=== PATIENT | male | born 1960 | race Caucasian/White ===

== ENCOUNTER 2024-07-23 06:59 | Observation (INO) | payer BC, SELFPAY ==
[2024-07-23] VITALS (29 sets, daily range): BP systolic 91–103; BP diastolic 54–65; PULSE 84–107; TEMP 36.6–36.8; O2SAT 91–100; BMI 26.5; BMI 26.3
--- NOTE | 2024-07-23 07:11 | ECG_ITS ---
The [facility] Test Date: 2024-07-23 Pat Name: Teddy Escobar Department: Room: - Gender: Male [employer]: : 1960 Requested By: Order Number: [id number] Reading MD: BROOKE LAWRENCE Measurements Intervals [place] Rate: 93 P: 67 SC: 146 QRS: 65 QRSD: 94 T: 59 QT: 386 QTc: 437 Interpretive Statements 1100 Sinus rhythm [address] depression 9150 abnormal ECG Compared to ECG 02/22/2019 13:13:28 No significant changes Electronically Signed On 07-23-2024 18:37:17 EDT by BROOKE LAWRENCE
--- NOTE | 2024-07-23 07:12 | XR_ITS ---
The [address] [address] Patient Name: AMANDO [place] MRN: [id number] date: 1960 Sex: M Assigned Patient Location: ER Current Patient Location: ER Accession/Order Number: [id number] Exam Date: 07/23/2024 07:15 Report Date: 07/23/2024 07:54 At the request of: ELO HARDY Procedure: XR chest 1V EXAMINATION: XR chest 1V HISTORY: cough COMPARISON: No relevant comparison available. TECHNIQUE: AP portable FINDINGS: LUNGS: No significant pulmonary parenchymal abnormalities. VASCULATURE: No increased pulmonary vasculature. PLEURA: No pneumothorax, effusion, or pleural thickening. CARDIAC: No cardiomegaly or cardiac silhouette abnormality. MEDIASTINUM: No visible mass or adenopathy. BONES: No fracture or visible bone lesion. OTHER: Negative. XR/XR chest 1V IMPRESSION: No acute cardiopulmonary process Electronically authenticated by: GATO ARMSTRONG Date: 07/23/2024 07:54
[2024-07-23 07:26] LABS: Hematocrit 26.9 % (42.0-54.0); Hemoglobin 8.9 g/dL (14.0-18.0); Mean Corpuscular HGB Conc 33.1 g/dL (29.9-35.2); Mean Corpuscular Hemoglobin 31.1 pg (25.9-34.0); Mean Corpuscular Volume 94.1 fL (80.0-94.0); Mean Platelet Volume 10.3 fL (9.5-13.5); Platelet Count 253 10^3/uL (150-450); Red Blood Count 2.86 10^6/uL (4.70-6.10); Red Cell Distribution Width 15.2 % (11.0-15.0); White Blood Count 21.1 10^3/uL (4.0-11.0)
[2024-07-23 07:34] LABS: Magnesium 2.2 mg/dL (1.8-2.4)
[2024-07-23 07:44] LABS: Alanine Aminotransferase 31 U/L (16-63); Albumin Globulin Ratio 0.9; Albumin Level 3.3 g/dL (3.4-5.0); Alkaline Phosphatase 67 U/L (46-116); Anion Gap 16.5; Aspartate Amino Transferase 21 U/L (15-37); BUN Creatinine Ratio 21.2; Bilirubin Total 0.3 mg/dL (0.2-1.0); Calcium 8.1 mg/dL (8.5-10.1); Carbon Dioxide 22.6 mmol/L (21.0-32.0); Chloride 100 mmol/L (98-107); Estimated GFR (African America >60 (>=60 mL/min/1.73m^2); Estimated GFR (Non-African Ame 53 (>=60 mL/min/1.73m^2); Globulin 3.6 g/dL; Glucose 114 mg/dL (74-106); Potassium 4.1 mmol/L (3.5-5.1); Sodium 135 mmol/L (136-145); Total Protein 6.9 g/dL (6.4-8.2); Troponin I High Sensitivity 18.7 pg/mL (4.0-76.1)
[2024-07-23 07:53] LABS: Band Neutrophils Absolute 0.4 10^3/uL (0.0-0.3); Lymphocytes Absolute Manual 2.11 10^3/uL (1.20-3.80); Monocytes Absolute Manual 1.89 10^3/uL (0.30-0.80); Segmented Neut Absolute Manual 16.66 10^3/uL (1.4-6.5)
[2024-07-23] MEDS: 0.9 % SODIUM CHLORIDE 1,000 ML 1000 ML IV (08:00)
[2024-07-23 08:12] LABS: D Dimer <0.19 mg/L FEU (<=0.59)
[2024-07-23 08:13] LABS: Lactate/Lactic Acid 2.3 mmol/L (0.4-2.0)
[2024-07-23] MEDS: CEFTRIAXONE 2,000 MG in 0.9 % SODIUM CHLORIDE 100 ML 200 MG IV (09:08)
[2024-07-23] MEDS: 0.9 % SODIUM CHLORIDE 1,000 ML 500 ML IV (09:08)
[2024-07-23 09:15] LABS: Bilirubin Urine NEGATIVE (NEGATIVE); Blood Urine NEGATIVE (NEGATIVE); Clarity Urine CLEAR (CLEAR); Color Urine LT. YELLOW (YELLOW); Glucose Urine UA NEGATIVE (NEGATIVE); Ketones Urine NEGATIVE (NEGATIVE); Leukocyte Esterase Urine NEGATIVE (NEGATIVE); Nitrite Urine NEGATIVE (NEGATIVE); Protein Urine NEGATIVE (NEG/TRACE); Urobilinogen Urine 0.2 EU/dL (0.2-1.0)
[2024-07-23 09:18] LABS: Urine Microscopic Indicated NO
--- NOTE | 2024-07-23 09:36 | ED.GENADUL1 ---
HPI HPI - General Adult General Chief complaint: Weakness Stated complaint: general weakness Time Seen by Provider: 07/23/24 07:11 Source: patient Mode of arrival: walk-in Limitations: no limitations History of Present Illness HPI narrative: The patient is coming to us with a few days history of cough associated with phlegm production and shortness of breath that he started having this morning dizziness with it as well, patient have some nausea and diarrhea over the last few days The patient also had decreased p.o. intake for the last few days he mentioned that it all started almost around Friday, there was no chest pain no abdominal pain there was no blood in stool or vomiting, he has been eating only 1 meal almost for the last few days. He noted this morning that he is very dizzy when standing up and very tired The patient is a smoker and smokes 1 pack of cigarette daily He denies any history of any cardiac issues he does take antihypertensive medication antihyperlipidemia medication No exposure to anybody with similar symptoms but he did travel to [place] almost 10 days ago Related Data Home Medications ?Medication ?Instructions ?Recorded ?Confirmed atorvastatin 40 mg tablet 40 mg PO DAILY 07/23/24 07/23/24 lisinopril 10 mg tablet 10 mg PO DAILY 07/23/24 07/23/24 tamsulosin 0.4 mg capsule 0.4 mg PO Q24H 07/23/24 07/23/24 Allergies Allergy/AdvReac Type Severity Reaction Status Date / Time No Known Drug Allergies Allergy Verified 07/23/24 07:04 Opioid HPI Opioid Management Most Recent Opioid Data: No Data to Display Review of Systems ROS Status of ROS 10 or more systems reviewed and unremarkable except as noted in history and below PFSH PFSH Social History Little interest or pleasure in doing things: not at all Feeling down, depressed, or hopeless: not at all Exam Narrative Exam Narrative: Nurses notes and vital signs reviewed and patient is not hypoxic. General: Well-appearing and in no apparent distress. Skin: Warm, dry, no pallor noted. No rash. Head: Normocephalic, atraumatic. Neck: Supple, non-tender. Eye: Pupils are equal, round and EOMI. No scleral icterus. Ears, Nose, Mouth, and Throat: TM are clear, no nasal mucosal hypertrophy. Oral mucosa is moist, no posterior oropharynx erythema, uvula is mid-line Cardiovascular: Regular Rate and Rhythm the patient have a systolic and diastolic murmur all over the pericardium Respiratory: No accessory muscle use or respiratory distress. Lungs distant breathing sound bilaterally Chest Wall: no tenderness Back: No midline thoracic or lumbar vertebral tenderness. No CVA tenderness Musculoskeletal: normal ROM, no calf or popliteal tenderness, no lower extremity edema/swelling GI: Abdomen is soft, non-distended. Normal bowel sounds. No masses appreciated. No tenderness to palpation. No rebound, guarding, or rigidity noted. Neurological: A&O x4. No cranial nerve dysfunction observed. No truncal ataxia. Moves all extremities. Sensation intact. Psychiatric: Cooperative and interactive. Normal mood and affect. Constitutional Vital Signs, click to edit/add: Last Vital Signs Temp 97.9 F 07/23/24 07:05 Pulse 90 07/23/24 08:20 Resp 16 07/23/24 08:20 BP 94/54 07/23/24 08:38 Pulse Ox 99 07/23/24 08:17 Course Vital Signs Vital signs: Vital Signs Temperature 97.9 F 07/23/24 07:05 Pulse Rate 96 H 07/23/24 07:05 Respiratory Rate 18 07/23/24 07:05 Blood Pressure 96/61 07/23/24 07:05 Pulse Oximetry 100 07/23/24 07:05 Temperature 97.9 F 07/23/24 07:05 Pulse Rate 90 07/23/24 08:20 Respiratory Rate 16 07/23/24 08:20 Blood Pressure 94/54 07/23/24 08:38 Pulse Oximetry 99 07/23/24 08:17 Medical Decision Making [facility] [place] Narrative Medical decision making narrative: The patient EKG shows sinus rhythm with a heart rate of [address] elevation or depression Upon arrival the patient blood pressure was in the 90s systolic with the patient with history of hypertension and is mostly significant for hypertension Patient started on 1 L IV fluids as CBC shows leukocytosis of the chemistry showing mild acute kidney injury with elevated lactic acid of 2.3 Chest x-ray did not show any infiltrate but with the patient source of infection being mostly the lung the patient will be covered with azithromycin and ceftriaxone for possible pneumonia The patient also had a urinalysis showing no acute pathology He also denies any abdominal pain Patient was initially started with 1 L fluid and I did not start him on 30 cc of fluids per kilogram as per sepsis protocol due to the patient significant murmur and the concern for possible overloaded fluid and pulmonary edema on the heart Patient denies any history of any cardiac events or any history of congestive heart failure or knowing about any murmur The patient case was discussed with and she agreed on admitting the patient for pneumonia management and sepsis as well Lab Data Labs: Lab Results 07/23/24 07/23/24 Range/Units 07:18 08:58 WBC 21.1 H (4.0-11.0) 10^3/uL RBC 2.86 L (4.70-6.10) 10^6/uL Hgb 8.9 L (14.0-18.0) g/dL Hct 26.9 L (42.0-54.0) % MCV 94.1 H (80.0-94.0) fL MCH 31.1 (25.9-34.0) pg MCHC 33.1 (29.9-35.2) g/dL RDW 15.2 H (11.0-15.0) % Plt Count 253 (150-450) 10^3/uL MPV 10.3 (9.5-13.5) fL Seg Neuts % (Manual) 79.0 H (43.0-75.0) Band Neutrophils % 2.0 (0-5) % Lymphocytes % (Manual) 10.0 L (20.5-60.0) % Monocytes % (Manual) 9.0 (1.7-12.0) % Eosinophils % (Manual) 0.0 L (0.9-7.0) % Basophils % (Manual) 0.0 L (0.2-2.0) % Neutrophils # (Manual) 16.66 H (1.4-6.5) 10^3/uL Band Neutrophils # 0.4 H (0.0-0.3) 10^3/uL Lymphocytes # (Manual) 2.11 (1.20-3.80) 10^3/uL Monocytes # (Manual) 1.89 H (0.30-0.80) 10^3/uL Eosinophils # (Manual) 0.00 (0.00-0.70) 10^3/uL Basophils # (Manual) 0.00 (0.00-0.10) 10^3/uL D-Dimer <0.19 (<=0.59) mg/L FEU Sodium 135 L (136-145) mmol/L Potassium 4.1 (3.5-5.1) mmol/L Chloride 100 (98-107) mmol/L Carbon Dioxide 22.6 (21.0-32.0) mmol/L Anion Gap 16.5 BUN 29.0 H (7.0-18.0) mg/dL Creatinine 1.37 H (0.70-1.30) mg/dL Est GFR ( Amer) >60 (>=60 mL/min/1.73m^2) Est GFR (Non-Af Amer) 53 L (>=60 mL/min/1.73m^2) BUN/Creatinine Ratio 21.2 Glucose 114 H (74-106) mg/dL Lactate 2.3 H* (0.4-2.0) mmol/L Calcium 8.1 L (8.5-10.1) mg/dL Magnesium 2.2 (1.8-2.4) mg/dL Total Bilirubin 0.3 (0.2-1.0) mg/dL AST 21 (15-37) U/L ALT 31 (16-63) U/L Alkaline Phosphatase 67 (46-116) U/L Troponin I High Sens 18.7 (4.0-76.1) pg/mL Total Protein 6.9 (6.4-8.2) g/dL Albumin 3.3 L (3.4-5.0) g/dL Globulin 3.6 g/dL Albumin/Globulin Ratio 0.9 Urine Color Lt. yellow (YELLOW) Urine Clarity Clear (CLEAR) Urine pH 6.0 (5.0-9.0) Ur Specific [place] 1.010 (1.005-1.025) Urine Protein Negative (NEG/TRACE) mg/dL Urine Glucose (UA) Negative (NEGATIVE) mg/dL Urine Ketones Negative (NEGATIVE) mg/dL Urine Occult Blood Negative (NEGATIVE) Urine Nitrite Negative (NEGATIVE) Urine Bilirubin Negative (NEGATIVE) Urine Urobilinogen 0.2 (0.2-1.0) EU/dL Ur Leukocyte Esterase Negative (NEGATIVE) Discharge Plan Discharge Chief Complaint: Weakness Clinical Impression: Pneumonia, Sepsis, ALEXANDRO (acute kidney injury) Patient Disposition: Admitted As Inpatient Time of Disposition Decision: 09:36
[2024-07-23 09:53] LABS: Internal Control Within Normal Limits; SARS-CoV-2 Ag NEGATIVE (NEGATIVE)
[2024-07-23] MEDS: AZITHROMYCIN 500 MG in 0.9 % SODIUM CHLORIDE 250 ML 250 MG IV (10:25)
[2024-07-23 10:49] LABS: Lactate/Lactic Acid 1.1 mmol/L (0.4-2.0)
[2024-07-23] MEDS: NICOTINE 21 MG PATCH.TD24 TD (11:10)
--- NOTE | 2024-07-23 11:55 | PM.HP ---
HPI H&P: HPI History of Present Illness Chief complaint: general weakness Narrative: Patient is a 64 y.o white male with past medical history of hypertension and high cholesterol, also is a 1 PPD smoker. He reports he has been having some seasonal allergy symptoms, runny nose, drainage and cough. Took a Claritin today and his lisinopril. When he went to stand he got dizzy and short of breath so he drove himself to ER. In the ER patient had BP 91/59, Cr was elevated to 1.37 BUN 29. Normal lactate but elevated WBC's 22. CHest xray negative, UA negative, Covid negative, Trop and ProBNP negative. Patient was given Azithromycin, and rocephin along with IVF for his BP and ALEXANDRO and admitted to the hospitalist service for further plan of care. Patient denies seeing a lung or heart doctor. He has no known COPD. Opioid HPI Opioid Management Most Recent Pain and Opioid Data: Last Pain Assessment 07/23/24 12:08 Last ORT Total Score 0 07/23/24 11:07/23/24 Last ORT Risk Category Low Risk 07/23/24 11:07/23/24 Review of Systems ROS Narrative ROS: a complete review of systems were reviewed with patient and are positive as below or listed in History of Chief Complaint. General: no fever, chills, night sweats Head: no headache, trauma, visual changes, nausea or vomiting Skin: no reported rashes, itching or sores Eyes: no blurriness of vision Ears: no reported hearing loss, vertigo, earache, or tinnitus Throat: sore throat, hoarseness Heart: no chest pain Lungs: shortness of breath and cough GI: no diarrhea or vomiting/nausea Urinary: no urinary urgency, frequency or pain Neuro: no numbness or tingling HEM: no bleeding issues or bruising ENDO: no thyroid problems Psych: no anxiety or depression PFSH [facility] Medical History (Updated 07/23/24 @ 13:13 by Duyen Baird DO) History of melanoma ?Z85.820 - Personal history of malignant melanoma of skin (ICD-10) Hyperlipidemia ?E78.5 - Hyperlipidemia, unspecified (ICD-10) Hypertension ?I10 - Essential (primary) hypertension (ICD-10) History of prostate cancer ?Z85.46 - Personal history of malignant neoplasm of prostate (ICD-10) Surgical History (Updated 07/23/24 @ 10:41 by Michelle Harper RN) H/O vasectomy ?Z98.52 - Vasectomy status (ICD-10) Family History (Updated 07/23/24 @ 10:44 by Michelle Harper RN) Father Family history of myocardial infarction Family history of hypertension Family history of stroke Grandmother Family history of cancer Mother Family history of hypertension Social History (Updated 07/23/24 @ 10:45 by Michelle Harper RN) Within the past year, how often did you have a drink containing alcohol: 2-4 times a month Smoking status: Current every day smoker What tobacco products do you use: cigarettes Packs per day: 1 Non-prescribed substance use: denies use Highest level of school completed/degree received: Associate degree: academic program Little interest or pleasure in doing things: not at all Feeling down, depressed, or hopeless: not at all Meds Home Medications and Allergies Home Medications ?Medication ?Instructions ?Recorded ?Confirmed ?Type atorvastatin 40 mg tablet 40 mg PO .at bedtime 07/23/24 07/23/24 History lisinopril 10 mg tablet 10 mg PO DAILY 07/23/24 07/23/24 History tamsulosin 0.4 mg capsule 0.4 mg PO .at bedtime 07/23/24 07/23/24 History Allergies Allergy/AdvReac Type Severity Reaction Status Date / Time No Known Drug Allergies Allergy Verified 07/23/24 07:04 Exam Narrative Exam Narrative: General: Patient is alert, and oriented to person, place and time with normal affect, proper hygiene Skin: no visible rashes, or ulcers Head: atraumatic, acephalic Eyes: PERRLA, no nystagmus present, conjunctiva clear, no scleral icterus Ears: normal gross auditory acuity Nose: symmetric, no discharge, no maxillary or frontal sinus tenderness Mouth/Throat: no erythema, exudate, or tonsillar enlargement, normal dentition Neck: no masses palpated, normal thyroid, no JVD or audible carotid bruits Heart: Normal rate and rhythm, holosystolic murmur present Lungs: no audible wheezes, crackles and normal breath sounds all lung corbin Abdomen: Normal audible bowel sounds, no distension, No palpable masses, no organomegaly, no rebound/guarding/ or rigidity Musculoskeletal: muscle atrophy noted, ROM is limited due to being in hospital bed, no swelling bilateral lower extremities Neuro: CN II-X grossly intact Constitutional Vital Signs, click to edit/add: Last Vital Signs Temp 97.8 F 07/23/24 10:47 Pulse 88 07/23/24 10:47 Resp 18 07/23/24 10:47 BP 91/59 07/23/24 10:47 Pulse Ox 98 07/23/24 10:47 O2 Del Method Room Air 07/23/24 10:47 Results Labs Labs: Short CBC 07/23/24 Range/Units 07:18 WBC 21.1 H (4.0-11.0) 10^3/uL Hgb 8.9 L (14.0-18.0) g/dL Hct 26.9 L (42.0-54.0) % Plt Count 253 (150-450) 10^3/uL BMP 07/23/24 07:18 Sodium 135 L Potassium 4.1 Chloride 100 Carbon Dioxide 22.6 BUN 29.0 H Creatinine 1.37 H Glucose 114 H Calcium 8.1 L Liver Function 07/23/24 Range/Units 07:18 Total Bilirubin 0.3 (0.2-1.0) mg/dL AST 21 (15-37) U/L ALT 31 (16-63) U/L Alkaline Phosphatase 67 (46-116) U/L Albumin 3.3 L (3.4-5.0) g/dL Urine 07/23/24 Range/Units 08:58 Urine Color Lt. yellow (YELLOW) Urine Clarity Clear (CLEAR) Urine pH 6.0 (5.0-9.0) Ur Specific [place] 1.010 (1.005-1.025) Urine Protein Negative (NEG/TRACE) mg/dL Urine Glucose (UA) Negative (NEGATIVE) mg/dL Assessment and Plan Assessment and Plan (1) ALEXANDRO (acute kidney injury): Assessment and Plan: will continue with IVF, monitor BMP, hold lisinopril, monitor BP (2) COPD exacerbation: Assessment and Plan: duonebs as needed, continue azithromycin and stop rocephin, normal chest Xray. No requiring oxygen. trop and proBNP normal (3) Dehydration: Assessment and Plan: with ALEXANDRO, hypotension, continue IVF (4) Hyperlipidemia: Assessment and Plan: continue atorvastatin Qualifiers: Hyperlipidemia type: unspecified Qualified Code(s): E78.5 - Hyperlipidemia, unspecified (5) Hypertension: Assessment and Plan: hypotension, hold lisinopril. Qualifiers: Hypertension type: primary hypertension Qualified Code(s): I10 - Essential (primary) hypertension (6) Murmur, cardiac: Assessment and Plan: unknown to patient. In the setting of shortness of breath and dizziness will get echo Plan Patient is a full code SCD's for prophylaxis and patient is ambulatory Patient is observation status and hopeful discharge home tomorrow.
[2024-07-23] MEDS: LACTATED RINGER'S SOLUTION 1,000 ML 125 ML IV ×2 (12:13→22:39)
--- NOTE | 2024-07-23 13:15 | CA_ITS ---
Patient Name: AMANDO [place] MR#: [id number] : 1960 Exam Date: 07/23/2024 Ordering Doctor: LESLEY GROSS . ECHOCARDIOGRAM REPORT PROCEDURE: CA ECHO DOPPLER COMPLETE INDICATIONS: shortness of breath, murmur, hypotension, smoker COMPARISON: None. DESCRIPTION: COMPLETE ECHOCARDIOGRAM Real-time transthoracic echocardiography with 2D, M-mode, spectral and color flow Doppler performed. QUALITY: Technical quality was good. LEFT VENTRICLE: Normal chamber size. Mild concentric left ventricular hypertrophy. Normal systolic function. Elevated velocities and gradients are seen across the LV outflow tract and the aortic valve. Poor sound transmission and technical difficulties do not allow accurate determination of the origin of the obstruction. LV EF: Normal left ventricular ejection fraction, (75%). DIASTOLIC: Grade I diastolic dysfunction. ATRIAL SEPTUM: Visually appears intact. LEFT ATRIUM: Mild dilatation. RIGHT ATRIUM: Normal chamber size. RIGHT VENTRICLE: Normal chamber size. Normal right ventricular systolic function. TRICUSPID VALVE: Normal mobility and thickness. No stenosis with trivial regurgitation. Doppler studies reveal severely (>60) elevated right sided pressures. RVSP 70 mmHg MITRAL VALVE: Mildly thickened with normal mobility. No evidence of mitral valve stenosis. Mild mitral annular calcification. No mitral regurgitation. AORTIC VALVE: Normal trileaflet appearance. Mildly calcified aortic valve. Cannot accurately quantify the severity of aortic stenosis. No aortic regurgitation. AORTIC ROOT: Normal diameter and appearance. PULMONIC VALVE: Not well visualized. PERICARDIUM: No evidence of pericardial effusion. IVC: IVC is dilated (2.2 cm), does not fully collapse. PLEURA: CONCLUSION: 1. Mild concentric left ventricular hypertrophy with hyperdynamic systolic function. LVEF is estimated at 75%. 2. Normal right ventricular size and systolic function. 3. Elevated velocities and gradients are seen across the LV outflow tract and the aortic valve. Poor sound transmission and technical difficulties do not allow accurate determination of the origin of the obstruction. 4. Severely elevated right-sided pressures. RVSP is 70 mmHg. 5. A transesophageal echocardiogram is recommended for better assessment. Adult Echocardiography Procedure Report Left Ventricle LVEDD (3.7 - 5.6 cm): 3.91 cm LVESD (2.2 - 4.0 cm): 2.14 cm LVIVS thickness (0.6 - 1.2 cm): 1.34 cm LVPW thickness (0.5 - 1.0 cm): 1.29 cm e': 0.07 m/s E - e': 18.21 LVOT Max Gradient: 4.28 mm[Hg], 9.94 mm[Hg] Peak Velocity (LVOT): 1.03 m/s, 1.58 m/s LVOT Diameter 1.94 cm Left Atrium LA Volume Index (2D A2C): 38.80 ml/m2 Left Atrium Systolic Dimension: 3.82 cm Mitral Valve MV E to A Ratio: 0.74 Mitral Valve A-Wave Peak Velocity: 1.61 m/s Mitral Valve E-Wave Peak Velocity: 1.19 m/s Right Ventricle Aorta AO Root Diam: 3.40 cm Aortic Valve AoV Area (Peak El): 0.77 cm2, 0.57 cm2, 0.83 cm2 AoV Area (VTI): 0.76 cm2, 0.58 cm2, 0.80 cm2 Peak Velocity(Antegrade Flow): 5.33 m/s, 5.60 m/s, 6.07 m/s Peak Gradient(Antegrade Flow): 113.80 mm[Hg], 125.58 mm[Hg], 147.32 mm[Hg] Mean Velocity(Antegrade Flow): 3.64 m/s, 4.15 m/s, 4.37 m/s Mean Gradient(Antegrade Flow): 65.17 mm[Hg], 77.94 mm[Hg], 86.05 mm[Hg] Velocity Time Integral: 93.55 cm, 118.38 cm, 124.68 cm Tricuspid Valve Peak Velocity (Regurgitant Flow): 3.73 m/s, 3.49 m/s Pulmonic Valve Mean Gradient: 5.74 mm[Hg] Mean Velocity: 1.08 m/s Peak Velocity: 1.80 m/s, 1.30 m/s Peak Gradient: 6.75 mm[Hg], 12.96 mm[Hg] Right Atrium Right Atrium Systolic Pressure: 45.10 ml, 45.10 ml Dictated by: Kulwinder Arcos M.D. on 07/23/2024 at 18:17 Approved by: Kulwinder Arcos M.D. on 07/23/2024 at 18:27
--- NOTE | 2024-07-23 20:06 | RESP.RT ---
No PRN breathing tx given. Pt denies need. No respiratory distress noted.
[2024-07-23] MEDS: TAMSULOSIN HCL 0.4 MG CAPSULE PO (21:40)
[2024-07-23] MEDS: ATORVASTATIN CALCIUM 40 MG TABLET PO (21:40)
[2024-07-24] VITALS (16 sets, daily range): BP systolic 99–117; BP diastolic 66–71; PULSE 80–96; TEMP 36.5–36.8; O2SAT 95
[2024-07-24] MEDS: LACTATED RINGER'S SOLUTION 1,000 ML 125 ML IV (04:11)
[2024-07-24 06:20] LABS: Basophils Percent Auto 0.3 % (0.2-2.0); Eosinophils Absolute Auto 0.2 10^3/uL (0.0-0.7); Eosinophils Percent Auto 1.8 % (0.9-7.0); Immature Granulocytes Abs Auto 0.21 10^3/uL (0.00-0.03); Immature Granulocytes Pct Auto 1.6 % (0.0-0.5); Lymphocytes Absolute Auto 2.3 10^3/uL (1.2-3.8); Mean Corpuscular HGB Conc 32.1 g/dL (29.9-35.2); Mean Corpuscular Hemoglobin 30.6 pg (25.9-34.0); Mean Corpuscular Volume 95.4 fL (80.0-94.0); Mean Platelet Volume 10.6 fL (9.5-13.5); Monocytes Percent Auto 7.8 % (1.7-12.0); Neutrophils Percent Auto 70.5 % (43.0-75.0); Platelet Count 206 10^3/uL (150-450); Red Blood Count 2.19 10^6/uL (4.70-6.10); Red Cell Distribution Width 15.6 % (11.0-15.0); White Blood Count 12.8 10^3/uL (4.0-11.0)
[2024-07-24 06:31] LABS: Anion Gap 17.4; BUN Creatinine Ratio 19.5; Carbon Dioxide 19.3 mmol/L (21.0-32.0); Chloride 105 mmol/L (98-107); Estimated GFR (African America >60 (>=60 mL/min/1.73m^2); Estimated GFR (Non-African Ame >60 (>=60 mL/min/1.73m^2); Glucose 105 mg/dL (74-106); Potassium 4.7 mmol/L (3.5-5.1); Sodium 137 mmol/L (136-145)
[2024-07-24 06:34] LABS: Hematocrit 20.9 % (42.0-54.0); Hemoglobin 6.7 g/dL (14.0-18.0)
[2024-07-24] MEDS: AZITHROMYCIN 500 MG in 0.9 % SODIUM CHLORIDE 250 ML 250 MG IV (09:07)
[2024-07-24 10:45] LABS: Hematocrit 20.3 % (42.0-54.0); Hemoglobin 6.7 g/dL (14.0-18.0)
[2024-07-24 11:48] LABS: Percent Iron Saturation 13.6 %
[2024-07-24] MEDS: NICOTINE 21 MG PATCH.TD24 TD (11:56)
[2024-07-24] MEDS: PANTOPRAZOLE SODIUM 40 MG VIAL IV (11:57)
[2024-07-24] MEDS: 0.9 % SODIUM CHLORIDE 250 ML 50 ML IV (13:15)
[2024-07-24 16:59] LABS: Hematocrit 23.8 % (42.0-54.0)
--- NOTE | 2024-07-24 17:37 | PM.DS1 ---
DS: Providers Provider Date of admission: 07/23/24 09:20 Primary care physician: Non-Staff Physician, Admitting clinician: Duyen Baird Attending physician on admission: Duyen Baird Attending physician on discharge: Shaikh Sofya Discharging clinician: Shaikh Sofya Anticipated date of discharge: 07/24/24 DS: Diagnosis Discharge Diagnosis (1) Upper GI bleed: Assessment and plan: Hb 8.9 --> 6.7, rechecked to confirm and was 6.7 on repeat labs. Transfused one unit PRBC. post tx H&H is 8.0 Reports dark colored stools. Not on AC. But uses NSAIDS intermittently. Colonoscopy within 5 years. No prior hx of GIB. No active/overt bleeding. Will discharge on oral omeprazole 40 q12. Will need outpatient GI work up. (2) Anemia due to GI blood loss: Assessment and plan: Hb on presentation was 8.9, trended down to 6.7, transfused one unit PRBC. Anemia work up c/w Iron deficiency likely from chronic GI blood loss. Will d/c on oral Iron. Will need outpatient GI work up (3) ALEXANDRO (acute kidney injury): Assessment and plan: Resolved. (4) Dehydration: Assessment and plan: Resolved. (5) Hyperlipidemia: Assessment and plan: C/w statin Qualifiers: Hyperlipidemia type: unspecified Qualified Code(s): E78.5 - Hyperlipidemia, unspecified (6) Hypertension: Assessment and plan: C/w lisinopril Qualifiers: Hypertension type: primary hypertension Qualified Code(s): I10 - Essential (primary) hypertension DS: Summary Hospital Course Hospital Course: 64 y o male presented to ED with runny nose, nasal congestion and lightheadedness. Noted to have low BP, anemia with WBC of 21k, Hb of 8.9 along with mild ALEXANDRO. Admitted initially for dehydration likely sec to suspected viral URI. Patient was treated with IVF. Infectious work up including CXR, UA - no indication of an infection. However, he was treated with rocephin/azitrhomycin for suspected PNA. His BP also improved but he subjectively felt better. ECHO to assess cardiac structure revealed elevated right sided pressures and possible dynamic Left outflow tract obstruction. On subsequent day, his labs revealed BP of only 6.7, that was confirmed with repeat testing for which he was given one unit of PRBC. Anemia work up consistent with iron deficiency. Upon inquiry, he informed me that he has noticed dark colored stools for past few days. Post tx H&H is 8. Patient is asymptomatic now. Medically stable for discharge. He will be discharged on oral Omeprazole along with PO iron. He will need outpatient GI work up. He will also benefit from outpatient f/u by Cardiology. Status at Discharge Functional status at discharge: independent ambulation Overall status at discharge: patient is back to baseline Time Spent with Patient Time attestation: Total time spent providing and/or coordinating discharge services: Time spent: greater than 30 minutes Exam Constitutional Vital Signs, click to edit/add: Last Vital Signs Temp 97.9 F 07/24/24 16:49 Pulse 89 07/24/24 16:49 Resp 20 07/24/24 16:49 BP 117/68 07/24/24 16:49 Pulse Ox 95 07/24/24 13:15 O2 Del Method Room Air 07/24/24 13:15 Documenting provider has reviewed patient's vital signs: yes Common normals: no apparent distress and oriented x3 General appearance: cooperative Respiratory Common normals: normal respiratory effort and clear to auscultation bilaterally Effort & inspection: able to speak in complete sentences Auscultation: clear to auscultation bilaterally Cardio Common normals: regular rate, S1 normal heart sound and S2 normal heart sound Rate: regular rate Heart sounds: S1 normal and S2 normal GI Common normals: Normal to inspection, nondistended, normoactive bowel sounds present, soft to palpation, non-tender and no hepatosplenomegaly Palpation: soft and no hepatosplenomegaly Extremity Common normals: no clubbing, cyanosis or edema Neuro Common normals: oriented x3, moves all extremities and no focal motor deficits Psych Common normals: mental status grossly normal, denies hallucinations, denies homicidal ideation and denies suicidal ideation DS: Data Data Completed and Pending Labs on day of discharge: Labs from last 24 hours 07/24/24 07/24/24 07/24/24 16:45 11:10 10:18 WBC RBC Hgb 8.0 L 6.7 L* Hct 23.8 L* 20.3 L* MCV MCH MCHC RDW Plt Count MPV Neut % (Auto) Lymph % (Auto) [place] % (Auto) Eos % (Auto) Baso % (Auto) Neut # (Auto) Lymph # (Auto) [place] # (Auto) Eos # (Auto) Baso # (Auto) Abs Immat Gran (auto) Imm/Tot Granulo (auto) Sodium Potassium Chloride Carbon Dioxide Anion Gap BUN Creatinine Est GFR ( Amer) Est GFR (Non-Af Amer) BUN/Creatinine Ratio Glucose Calcium Iron 44.0 L TIBC 323.0 % Saturation 13.6 Ferritin 26.0 Folate 13.10 Blood Type A Positive Antibody Screen Negative Crossmatch See Detail 07/24/24 05:56 WBC 12.8 H RBC 2.19 L Hgb 6.7 L* D Hct 20.9 L* MCV 95.4 H MCH 30.6 MCHC 32.1 RDW 15.6 H Plt Count 206 MPV 10.6 Neut % (Auto) 70.5 Lymph % (Auto) 18.0 L [place] % (Auto) 7.8 Eos % (Auto) 1.8 Baso % (Auto) 0.3 Neut # (Auto) 9.0 H Lymph # (Auto) 2.3 [place] # (Auto) 1.0 H Eos # (Auto) 0.2 Baso # (Auto) 0.0 Abs Immat Gran (auto) 0.21 H Imm/Tot Granulo (auto) 1.6 H Sodium 137 Potassium 4.7 Chloride 105 Carbon Dioxide 19.3 L Anion Gap 17.4 BUN 22.0 H Creatinine 1.13 Est GFR ( Amer) >60 Est GFR (Non-Af Amer) >60 BUN/Creatinine Ratio 19.5 Glucose 105 Calcium 8.0 L Iron TIBC % Saturation Ferritin Folate Blood Type Antibody Screen Crossmatch Discharge Plan Discharge Disposition: Home, Self-Care Discharge Medications: New ferrous sulfate 325 mg (65 mg iron) tablet 325 mg PO DAILY Qty: 30 0RF omeprazole 40 mg capsule,delayed release(DR/EC) 40 mg PO BID Qty: 60 0RF Continued atorvastatin 40 mg tablet 40 mg PO .at bedtime lisinopril 10 mg tablet 10 mg PO DAILY tamsulosin 0.4 mg capsule 0.4 mg PO .at bedtime Activity: increase activity as tolerated Diet: advance to your usual diet Print Language: Malawian Patient Instructions: Dehydration (DC), Acute Kidney Injury (DC) Forms: Portal Instructions Follow Up Appointments: Call your PCP on FridayJul 26 for hospital follow up
[2024-07-25 10:08] LABS: Vitamin B12 417 pg/mL (232-1245)
[2024-07-25 11:07] LABS: Transferrin 261 mg/dL (177-329)
--- NOTE | 2024-07-26 13:23 | CM.DCFOLLOWU ---
Person spoke with:patient How are you feeling?well, back at work today How is your pain? none Did you understand your discharge instructions?yes Do you have any questions about your discharge instructions?no Were you given any prescriptions at discharge?yes Were you able to get your prescriptions filled?yes Do you understand how to take your medications as ordered?yes Do you have any questions about your follow up appointment and do you plan to keep your follow up appointment? no questions, follow up today after work Is there anything else that you would like to discuss?no Questions/Comments/Concerns/Other:N/A
== END 2024-07-24 18:15 | disposition home or self-care (01) ==
LOC: ER 09:36 → MS 10:28
PROVIDERS: Family Medicine; Admitting Provider Internal Medicine; Emergency Provider Emergency Medicine; Visit Provider Internal Medicine
DX: E86.0 Dehydration (principal); N17.9 Acute kidney failure, unspecified; K92.2 Gastrointestinal hemorrhage, unspecified; D50.0 Iron deficiency anemia secondary to blood loss (chronic); J44.1 Chronic obstructive pulmonary disease with (acute) exacerbation; F17.210 Nicotine dependence, cigarettes, uncomplicated; E78.00 Pure hypercholesterolemia, unspecified; I10 Essential (primary) hypertension; R01.1 Cardiac murmur, unspecified; R42 Dizziness and giddiness; R06.02 Shortness of breath; Z85.820 Personal history of malignant melanoma of skin; Z85.46 Personal history of malignant neoplasm of prostate; Z98.52 Vasectomy status
CPT/HCPCS: 36415; 36430; 71045; 80048; 80053; 81003; 82607; 82728; 82746; 83540; 83550; 83605; 83735; 83880; 84466; 84484; 85007; 85014; 85018; 85025; 85027; 85378; 86850; 86900; 86901; 86923; 87040; 87811; 93005; 93306; 94667; 94668; 96361; 96365; 96366; 96367; 96375; 99285; 99406; G0328; G0378; J0456; J0696; P9016

== ENCOUNTER 2025-01-27 08:58 | Emergency (ER) | payer BC, SELFPAY ==
[2025-01-27 09:07] VITALS: BP 172/82; PULSE 68; TEMP 36.4; O2SAT 100; BMI 25.8
--- NOTE | 2025-01-27 09:27 | ED.GENADUL1 ---
HPI HPI - General Adult General Chief complaint: Abdominal Pain Stated complaint: R SIDE FLANK PAIN Time Seen by Provider: 01/27/25 09:23 Source: patient Mode of arrival: walk-in Limitations: no limitations History of Present Illness HPI narrative: 64-year-old male presents to the emergency department for abdominal pain. He did not have it when he went to bed last night. When he awoke he had it and he points to the left flank and left lower quadrant of his abdomen. No trauma or injury. No vomiting diarrhea or constipation. No dysuria or hematuria. He has never had a kidney stone nor has he had diverticulitis. It feels like a cramp and it is continuous. Related Data Home Medications ?Medication ?Instructions ?Recorded ?Confirmed atorvastatin 40 mg tablet 40 mg PO .at bedtime 07/23/24 01/27/25 lisinopril 10 mg tablet 10 mg PO DAILY 07/23/24 01/27/25 tamsulosin 0.4 mg capsule 0.4 mg PO .at bedtime 07/23/24 01/27/25 Previous Rx's ?Medication ?Instructions ?Recorded ciprofloxacin HCl 500 mg tablet 500 mg PO Q12H #20 tabs 01/27/25 (Cipro) metronidazole 500 mg tablet 500 mg PO TID #30 tabs 01/27/25 Allergies Allergy/AdvReac Type Severity Reaction Status Date / Time No Known Drug Allergies Allergy Verified 01/27/25 09:11 Opioid HPI Opioid Management Most Recent Opioid Data: Last ORT Total Score 0 07/23/24, 11:01 Last ORT Risk Category Low Risk 07/23/24, 11:01 Review of Systems ROS Narrative A ten point review of systems is negative except as noted above. 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-10) Murmur, cardiac ?R01.1 - Cardiac murmur, unspecified (ICD-10) COPD exacerbation ?J44.1 - Chronic obstructive pulmonary disease with (acute) exacerbation (ICD-10) History of melanoma ?Z85.820 - Personal history of malignant melanoma of skin (ICD-10) Hyperlipidemia ?E78.5 - Hyperlipidemia, unspecified (ICD-10) Hypertension ?I10 - Essential (primary) hypertension (ICD-10) History of prostate cancer ?Z85.46 - Personal history of malignant neoplasm of prostate (ICD-10) Surgical History (Updated 07/23/24 @ 10:41 by Michelle Harper RN) H/O vasectomy ?Z98.52 - Vasectomy status (ICD-10) Family History (Updated 07/23/24 @ 10:44 by Michelle Harper, RN) Father Family history of myocardial infarction Family history of hypertension Family history of stroke Grandmother Family history of cancer Mother Family history of hypertension Social History (Updated 07/23/24 @ 10:45 by Michelle Harper RN) Within the past year, how often did you have a drink containing alcohol: 2-4 times a month Smoking status: Current every day smoker What tobacco products do you use: cigarettes Packs per day: 1 Non-prescribed substance use: denies use Highest level of school completed/degree received: Associate degree: academic program Little interest or pleasure in doing things: not at all Feeling down, depressed, or hopeless: not at all Exam Narrative Exam Narrative: Nurses note and vital signs reviewed and patient is not hypoxic. General: The patient appears well and in no apparent distress. Patient is resting comfortably on cart. Skin: Warm, dry, no pallor noted. There is no rash noted. Head: Normocephalic, atraumatic Eye: Normal conjunctiva, no drainage Ears, Nose, Mouth, and Throat: oral mucosa is moist. Nares patent. Cardiovascular: Regular Rate and Rhythm Respiratory: Patient is in no distress, no accessory muscle use, lungs are clear to auscultation, no wheezing, rales or rhonchi Back: non-tender, no CVA tenderness bilaterally to percussion. GI: no tenderness to palpation, no masses appreciated. No rebound, guarding, or rigidity noted. No rash on his abdomen or flank area Musculoskeletal: The patient has no evidence of calf tenderness, no pitting edema, symmetrical pulses noted bilaterally Neurological: A&O, normal speech Psychiatric: Cooperative Constitutional Vital Signs, click to edit/add: Last Vital Signs Temp 97.5 F L 01/27/25 09:07 Pulse 68 01/27/25 09:07 Resp 18 01/27/25 09:07 BP 172/82 H 01/27/25 09:07 Pulse Ox 100 01/27/25 09:07 O2 Del Method Room Air 01/27/25 09:07 Course Vital Signs Vital signs: Vital Signs Temperature 97.5 F L 01/27/25 09:07 Pulse Rate 68 01/27/25 09:07 Respiratory Rate 18 01/27/25 09:07 Blood Pressure 172/82 H 01/27/25 09:07 Pulse Oximetry 100 01/27/25 09:07 Oxygen Delivery Method Room Air 01/27/25 09:07 Temperature 97.5 F L 01/27/25 09:07 Pulse Rate 68 01/27/25 09:07 Respiratory Rate 18 01/27/25 09:07 Blood Pressure 172/82 H 01/27/25 09:07 Pulse Oximetry 100 01/27/25 09:07 Oxygen Delivery Method Room Air 01/27/25 09:07 Medical Decision Making MDM Narrative Medical decision making narrative: Diverticulitis is identified on the CAT scan, mild and not complicated. He is given IV Cipro and Flagyl here and discharged home with prescriptions for Cipro and Flagyl. Treatment diagnosis and follow-up were discussed with the patient. At this point he does not require admission to the hospital Differential Diagnosis Differential Diagnosis: Diverticulitis, constipation, kidney stone, colitis Lab Data Lab results reviewed: Yes I reviewed the patient's lab results Labs: Lab Results 01/27/25 01/27/25 Range/Units 09:19 09:25 WBC 12.5 H (4.0-11.0) 10^3/uL RBC 4.95 (4.70-6.10) 10^6/uL Hgb 12.8 L (14.0-18.0) g/dL Hct 40.8 L (42.0-54.0) % MCV 82.4 (80.0-94.0) fL MCH 25.9 (25.9-34.0) pg MCHC 31.4 (29.9-35.2) g/dL RDW 23.5 H (11.0-15.0) % Plt Count 292 (150-450) 10^3/uL MPV 10.3 (9.5-13.5) fL Neut % (Auto) 78.5 H (43.0-75.0) % Lymph % (Auto) 11.7 L (20.5-60.0) % [place] % (Auto) 7.5 (1.7-12.0) % Eos % (Auto) 1.5 (0.9-7.0) % Baso % (Auto) 0.4 (0.2-2.0) % Neut # (Auto) 9.8 H (1.4-6.5) 10^3/uL Lymph # (Auto) 1.5 (1.2-3.8) 10^3/uL [place] # (Auto) 0.9 H (0.3-0.8) 10^3/uL Eos # (Auto) 0.2 (0.0-0.7) 10^3/uL Baso # (Auto) 0.1 (0.0-0.1) 10^3/uL Abs Immat Gran (auto) 0.05 H (0.00-0.03) 10^3/uL Imm/Tot Granulo (auto) 0.4 (0.0-0.5) % Sodium 134 L (136-145) mmol/L Potassium 4.0 (3.5-5.1) mmol/L Chloride 101 (98-107) mmol/L Carbon Dioxide 25.6 (21.0-32.0) mmol/L Anion Gap 11.4 BUN 14.0 (7.0-18.0) mg/dL Creatinine 1.30 (0.70-1.30) mg/dL Est GFR ( Amer) >60 (>=60 mL/min/1.73m^2) Est GFR (Non-Af Amer) 56 L (>=60 mL/min/1.73m^2) BUN/Creatinine Ratio 10.8 Glucose 110 H (74-106) mg/dL Calcium 9.4 (8.5-10.1) mg/dL Urine Color Yellow (YELLOW) Urine Clarity Clear (CLEAR) Urine pH 6.0 (5.0-9.0) Ur Specific [place] 1.025 (1.005-1.025) Urine Protein Negative (NEG/TRACE) mg/dL Urine Glucose (UA) Negative (NEGATIVE) mg/dL Urine Ketones Negative (NEGATIVE) mg/dL Urine Occult Blood Negative (NEGATIVE) Urine Nitrite Negative (NEGATIVE) Urine Bilirubin Negative (NEGATIVE) Urine Urobilinogen 0.2 (0.2-1.0) EU/dL Ur Leukocyte Esterase Negative (NEGATIVE) Urine RBC 0-2 (0-2) #/HPF Urine WBC None seen (NONE SEEN) #/HPF Ur Squamous Epith Cells Rare (NONE/RARE) #/LPF Urine Crystals None seen (None Seen) #/HPF Urine Bacteria None seen (NONE SEEN) #/HPF Urine Casts None seen (NONE SEEN) #/LPF Urine Mucus None seen (NONE SEEN) Ur Culture Indicated? No Imaging Data CT scan - abdomen: Radiologist's impression: Mild acute sigmoid diverticulitis Discharge Plan Discharge Chief Complaint: Abdominal Pain Clinical Impression: Diverticulitis Patient Disposition: Home, Self-Care Time of Disposition Decision: 11:26 Condition: Good Mode of Transportation: Private Vehicle Prescriptions / Home Meds: New metronidazole 500 mg tablet 500 mg PO TID Qty: 30 0RF ciprofloxacin HCl [Cipro] 500 mg tablet 500 mg PO Q12H Qty: 20 0RF No Action atorvastatin 40 mg tablet 40 mg PO .at bedtime lisinopril 10 mg tablet 10 mg PO DAILY tamsulosin 0.4 mg capsule 0.4 mg PO .at bedtime Print Language: Lithuanian Instructions: Diverticulitis (ED) Referrals: NOEMY PRADHAN [Primary Care Provider, Unknown] - 1 week
[2025-01-27 09:35] LABS: Basophils Absolute Auto 0.1 10^3/uL (0.0-0.1); Basophils Percent Auto 0.4 % (0.2-2.0); Eosinophils Absolute Auto 0.2 10^3/uL (0.0-0.7); Eosinophils Percent Auto 1.5 % (0.9-7.0); Hematocrit 40.8 % (42.0-54.0); Hemoglobin 12.8 g/dL (14.0-18.0); Immature Granulocytes Abs Auto 0.05 10^3/uL (0.00-0.03); Immature Granulocytes Pct Auto 0.4 % (0.0-0.5); Lymphocytes Absolute Auto 1.5 10^3/uL (1.2-3.8); Lymphocytes Percent Auto 11.7 % (20.5-60.0); Mean Corpuscular HGB Conc 31.4 g/dL (29.9-35.2); Mean Corpuscular Hemoglobin 25.9 pg (25.9-34.0); Mean Corpuscular Volume 82.4 fL (80.0-94.0); Mean Platelet Volume 10.3 fL (9.5-13.5); Monocytes Absolute Auto 0.9 10^3/uL (0.3-0.8); Monocytes Percent Auto 7.5 % (1.7-12.0); Neutrophils Absolute Auto 9.8 10^3/uL (1.4-6.5); Neutrophils Percent Auto 78.5 % (43.0-75.0); Platelet Count 292 10^3/uL (150-450); Red Blood Count 4.95 10^6/uL (4.70-6.10); Red Cell Distribution Width 23.5 % (11.0-15.0); White Blood Count 12.5 10^3/uL (4.0-11.0)
[2025-01-27 09:36] LABS: Bilirubin Urine NEGATIVE (NEGATIVE); Blood Urine NEGATIVE (NEGATIVE); Clarity Urine CLEAR (CLEAR); Color Urine YELLOW (YELLOW); Glucose Urine UA NEGATIVE (NEGATIVE); Ketones Urine NEGATIVE (NEGATIVE); Leukocyte Esterase Urine NEGATIVE (NEGATIVE); Nitrite Urine NEGATIVE (NEGATIVE); Protein Urine NEGATIVE (NEG/TRACE); Specific Gravity Urine 1.025 (1.005-1.025); Urobilinogen Urine 0.2 EU/dL (0.2-1.0)
[2025-01-27 09:43] LABS: Anion Gap 11.4; BUN Creatinine Ratio 10.8; Calcium 9.4 mg/dL (8.5-10.1); Carbon Dioxide 25.6 mmol/L (21.0-32.0); Chloride 101 mmol/L (98-107); Estimated GFR (African America >60 (>=60 mL/min/1.73m^2); Estimated GFR (Non-African Ame 56 (>=60 mL/min/1.73m^2); Glucose 110 mg/dL (74-106); Sodium 134 mmol/L (136-145)
[2025-01-27 09:46] LABS: Bacteria Urine NONE SEEN #/HPF (NONE SEEN); Cast Seen? NONE SEEN #/LPF (NONE SEEN); Crystals Seen? None Seen #/HPF (None Seen); Mucus Urine NONE SEEN (NONE SEEN); RBC Urine 0-2 #/HPF (0-2); Squamous Epithelial Cell Urine RARE #/LPF (NONE/RARE); Urine Culture Indicated NO; WBC Urine NONE SEEN #/HPF (NONE SEEN)
[2025-01-27] MEDS: METRONIDAZOLE/SODIUM CHLORIDE 500 MG/100 ML PREMIX 100 MG IV (11:53)
[2025-01-27] MEDS: CIPROFLOXACIN IN 5 % DEXTROSE 400 MG/200 ML PREMIX 200 MG IV (12:56)
== END 2025-01-27 14:00 | disposition home or self-care (01) ==
PROVIDERS: Emergency Provider Emergency Medicine
DX: K57.32 Diverticulitis of large intestine without perforation or abscess without bleeding (principal); Z98.52 Vasectomy status; F17.210 Nicotine dependence, cigarettes, uncomplicated
CPT/HCPCS: 36415; 74177; 80048; 81001; 85025; 96365; 96367; 99285; J0744; J1836; Q9967